=== PATIENT | male | born 1965 | race African-American/Black ===

== ENCOUNTER 2021-07-11 18:54 | Emergency (ER) | payer MEDICAID, SELFPAY | END 2021-07-11 20:30 | disposition home or self-care (01) | LOC: NAV ERS 18:54 | DX: Z20.822 Contact with and (suspected) exposure to COVID-19 (principal) | CPT/HCPCS: 99283 ==

== ENCOUNTER 2024-09-25 02:35 | Emergency (ER) | payer MEDICAID, OTHER, SELFPAY | END 2024-09-25 03:45 | disposition home or self-care (01) | LOC: NAV ERS 02:35 | DX: S01.81XA Laceration without foreign body of other part of head, initial encounter (principal); F10.129 Alcohol abuse with intoxication, unspecified; I10 Essential (primary) hypertension; W07.XXXA Fall from chair, initial encounter; Y90.9 Presence of alcohol in blood, level not specified; Y92.000 Kitchen of unspecified non-institutional (private) residence as the place of occurrence of the external cause | CPT/HCPCS: 12002; 99283 ==

== ENCOUNTER 2024-11-25 12:42 | Emergency (ER) | payer MEDICAID, OTHER | END 2024-11-25 13:17 | disposition home or self-care (01) | LOC: NAV ERS 12:42 | DX: S01.81XD Laceration without foreign body of other part of head, subsequent encounter (principal); I10 Essential (primary) hypertension; F17.210 Nicotine dependence, cigarettes, uncomplicated; X58.XXXD Exposure to other specified factors, subsequent encounter ==

== ENCOUNTER 2024-12-28 00:11 | Emergency (ER) | payer OTHER ==
[2024-12-28] MEDS ORDERED: Acetaminophen 500 MG TAB ONE (00:31)
== END 2024-12-28 02:11 | disposition home or self-care (01) ==
LOC: NAV ERS 00:11
DX: S02.2XXA Fracture of nasal bones, initial encounter for closed fracture (principal); S00.212A Abrasion of left eyelid and periocular area, initial encounter; F10.129 Alcohol abuse with intoxication, unspecified; I10 Essential (primary) hypertension; F17.210 Nicotine dependence, cigarettes, uncomplicated; W18.09XA Striking against other object with subsequent fall, initial encounter; Y93.01 Activity, walking, marching and hiking; Y92.89 Other specified places as the place of occurrence of the external cause; Z55.6 Problems related to health literacy
CPT/HCPCS: 70450; 72125; 99284